=== PATIENT | female | born 1990 | race Caucasian/White ===

== ENCOUNTER 2017-10-07 12:26 | Emergency (ER) | payer OTHER ==
[2017-10-07 12:33] VITALS: BP 142/88
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
[2017-10-07] MEDS ORDERED: IBUPROFEN 600 MG TABLET PO STA (13:17)
[2017-10-07] MEDS ORDERED: LIDOCAINE JELLY 2% 5 ML TUBE TOP STA (13:17)
[2017-10-07] MEDS ORDERED: HYDROcod/ACETAM 5/325 MG TABLET PO STA (13:17)
== END 2017-10-07 13:51 | disposition home or self-care (01) ==
LOC: ED 12:26
DX: T23.241A Burn of second degree of multiple right fingers (nail), including thumb, initial encounter (principal); T23.232A Burn of second degree of multiple left fingers (nail), not including thumb, initial encounter; X10.2XXA Contact with fats and cooking oils, initial encounter; F17.290 Nicotine dependence, other tobacco product, uncomplicated
CPT/HCPCS: 99282; 99283; A9270; J3490